=== PATIENT | female | born 1970 | race Two or more races ===

== ENCOUNTER 2023-06-12 04:09 | Emergency (ER) | payer OTHER ==
[2023-06-12 04:20] VITALS: BP 124/81; RESP 22; BMI 26.0
[2023-06-12 05:10] VITALS: PULSE 83
[2023-06-12] MEDS ORDERED: ACETAMINOPHEN 1000 MG/100 ML BAG IVPB ONE (05:27)
[2023-06-12] MEDS ORDERED: ACETAMINOPHEN INJECTION 100 ML IVPB ONE (05:28)
[2023-06-12 05:44] LABS: BASO % 0.2 % (0-2.0); EOS % 1.2 % (0-4.5); HEMATOCRIT 40.5 % (32.4-45.2); HEMOGLOBIN 13.8 GM/dL (10.7-15.3); LYMPH % 17.6 % (8-40); MCH 30.8 pg (25.7-33.7); MEAN CELL VOLUME 90.7 fl (80-96); MEAN PLT VOLUME 7.1 fl (7.5-11.1); MONO % 13.6 % (3.8-10.2); NEUT % 67.4 % (42.8-82.8); PLATELET COUNT 332 10^3/uL (134-434); RBC 4.46 M/mm3 (3.60-5.2); RDW 12.3 % (11.6-15.6); WHITE BLOOD COUNT 6.3 K/mm3 (4.0-10.0)
[2023-06-12 05:51] LABS: PROTHROMBIN TIME (PATIENT) 11.6 SEC (9.7-13.0)
[2023-06-12 05:53] LABS: ACTIVATED PTT 32.4 SECONDS (25.2-36.5)
[2023-06-12 06:08] LABS: POTASSIUM 3.6 mmol/L (3.5-5.1)
[2023-06-12 06:10] LABS: ALBUMIN 3.8 g/dl (3.4-5.0); BLOOD UREA NITROGEN 21.8 mg/dL (7-18); CALCIUM 9.3 mg/dL (8.5-10.1); MAGNESIUM 1.8 mg/dL (1.8-2.4)
[2023-06-12 06:13] LABS: CREATININE 0.9 mg/dL (0.55-1.3)
[2023-06-12 06:15] LABS: BILIRUBIN,TOTAL 0.7 mg/dL (0.2-1); TOT PROT 7.5 g/dl (6.4-8.2)
[2023-06-12 06:18] LABS: N-TERMINAL BNP 33.6 pg/ml (5-125)
[2023-06-12] MEDS ORDERED: KETOROLAC TROMETHAMINE 15 MG/ML VIAL IVPUSH ONE (06:51)
[2023-06-12] MEDS ORDERED: KETOROLAC TROMETHAMINE 15 MG/ML VIAL ONE (07:19)
== END 2023-06-12 07:57 | disposition home or self-care (01) ==
LOC: JER 04:09
PROC: 3E033NZ Introduction of Analgesics, Hypnotics, Sedatives into Peripheral Vein, Percutaneous Approach (ICD-10-PCS; principal; 2023-06-12)
PROC: 3E0333Z Introduction of Anti-inflammatory into Peripheral Vein, Percutaneous Approach (ICD-10-PCS; 2023-06-12)
DX: M99.08 Segmental and somatic dysfunction of rib cage (principal); R07.89 Other chest pain; Z20.822 Contact with and (suspected) exposure to COVID-19
CPT/HCPCS: 0241U-QW; 36415; 71045-TC-FY; 80053; 83735; 83880; 84484; 84703; 85025; 85610; 85730; 93005; 93010; 99285-25